=== PATIENT | male | born 1965 | race Caucasian/White ===

== ENCOUNTER 2019-08-15 06:32 | Observation (INO) | payer BC ==
[2019-08-15] MEDS ORDERED: MORPHINE 4 MG/ML SYR ONE (07:23)
[2019-08-15] MEDS ORDERED: ONDANSETRON 4 MG/2 ML VIAL ONE (07:26)
--- OUTSIDE RECORDS SUMMARY | 2019-08-15 07:27 | XMS REPORT ---
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
--- OUTSIDE RECORDS SUMMARY | 2019-08-15 07:27 | XMS REPORT ---
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
--- OUTSIDE RECORDS SUMMARY | 2019-08-15 07:27 | XMS REPORT ---
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
--- OUTSIDE RECORDS SUMMARY | 2019-08-15 07:27 | XMS REPORT ---
:1965 Author Organization e[employer]Works Care Team Providers Name Role Phone Stephen Ospina Provider Role Unavailable Allergies, Adverse Reactions, Alerts Substance Reaction Event Type Singulair outbursts Drug Allergy Claritin Info Not Available Drug Allergy Problems Problem Type Condition Code Onset Dates [...] Problem Nasal airway obstruction J34.89 Active Assessment Nasal airway obstruction J34.89 Active Assessment Allergic rhinitis due to animal J30.81 Active (cat) (dog) hair and dander Assessment Allergic rhinitis J30.89 Active Assessment 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 Active Assessment Allergic rhinitis due to pollen J30.1 Active Assessment Sinusitis - Chronic J32.8 Active Problem 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 Active Assessment Hypersensitivity pneumonitis due to J67.8 Active other organic dusts Problem Hearing loss - Sensorineural H90.3 Active Bilateral Medications Medication Code Code Instructions Start End Status Dosage System Date Date Biaxin XL [facility] 86437195247 500 MG Orally Oct 09, Nov 08, Active 1 tablet Once a day 2017 2017 Diflucan [facility] 65046995150 150 MG Orally Sep 24, Nov 19, Active 2 tablets Once a week 2016 2017 ProAir HFA [facility] [address]-15 Active not defined Nasonex [facility] [address]-18 Active not defined Zyrtec [facility] [address]-94 Active not defined Tylenol #3 [facility] 59425761647 300-30 MG Oct 23, Active 1-2 Orally every 3 2018 tablets hrs as needed Amoxicillin-Pot [facility] [address]-72 Active not Clavulanate defined Telmisartan [facility] [address]-85 Active not defined Esomeprazole [facility] [address]-77 Active not Magnesium defined Biaxin XL [facility] 49569183681 500 MG Orally Oct 23, Nov 22, Active 1 tablet Once a day 2017 2017 PredniSONE [facility] 11851221763 10 MG Orally Oct 23, Nov 22, Active 1 tablet Once a day 2017 2017 Results No Known Results Summary Purpose eClinicalWorks Submission
--- OUTSIDE RECORDS SUMMARY | 2019-08-15 07:27 | XMS REPORT ---
[...] 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 Active Assessment Unspecified visual disturbance H53.9 Active Problem Other hemorrhoids K64.8 Active Problem Hypertrophy of nasal turbinates J34.3 Active Problem Parageusia R43.2 Active Problem Allergic rhinitis, seasonal J30.2 Active Problem Allergic rhinitis J30.9 Active Problem Anosmia R43.0 Active Assessment 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 Active Assessment Hypertrophy of nasal turbinates J34.3 Active Assessment Allergic rhinitis J30.9 Active Assessment Other hemorrhoids K64.8 Active Problem Hearing loss - Sensorineural H90.3 Active Bilateral Problem Nasal airway obstruction R09.81 Active Assessment Sinusitis - Chronic J32.8 Active Problem Acute tonsillitis J03 Active Problem 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 Active Problem Sinusitis - Chronic J32.8 Active Medications Medication Code Code Instructions Start End Status Dosage System Date Date Biaxin XL [facility] 73712467173 500 MG Orally Oct 23, Nov 22, Active 1 tablet Once a day 2017 2017 ProAir HFA [facility] [address]-27 Active not defined Diflucan ND 07982281934 150 MG Orally Sep 24, Nov 15, Active 2 tablets Once a week 2016 2017 Amoxicillin-Pot [facility] [address]-75 Active not Clavulanate defined PredniSONE ND 21611670971 10 MG Orally Oct 23, Nov 18, Active 1 tablet Once a day 2017 [address] [facility] [address]-67 Active not defined Astelin [facility] 87624022793 137 MCG/SPRAY Nov 17, Active 1 spray in Nasally Twice a 2017 each day nostril Telmisartan [facility] [address]-31 Active not defined Zyrtec [facility] [address]-94 Active not defined Dymista [facility] 63156040551 137-50 MCG/ACT Nov 17, Active 1 puff in Nasally Twice a 2017 each day nostril Esomeprazole [facility] [address]-88 Active not Magnesium defined Tylenol #[address] [facility] 66210770427 300-30 MG Oct 23, Active 1-2 Orally every 2017 tablets hrs as needed Flonase [facility] 33036508510 50 MCG/ACT Nov 17, Active 1 spray in Nasally Twice a 2017 each day nostril Results No Known Results Summary Purpose eClinicalWorks Submission
--- OUTSIDE RECORDS SUMMARY | 2019-08-15 07:27 | XMS REPORT ---
:1965 Author Organization eClinicalWorks Care Team Providers Name Role Phone Stephen Ospina Provider Role Unavailable Allergies, Adverse Reactions, Alerts Substance Reaction Event Type Singulair outbursts Drug Allergy Claritin Info Not Available Drug Allergy Problems Problem Type Condition Code Onset Dates Condition Status Problem Nasal airway obstruction J34.89 Active Problem Allergic rhinitis, seasonal J30.2 Active Problem Chronic tonsillitis J35.01 Active Problem Allergic contact dermatitis, L23.9 Active unspecified cause Assessment Allergic contact dermatitis, L23.9 Active unspecified cause Problem 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 Active Problem Hypertrophy of nasal turbinates J34.3 Active Problem Anosmia R43.0 Active Problem Parageusia R43.2 Active Problem Other hemorrhoids K64.8 Active Problem Allergic rhinitis J30.9 Active Assessment 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 Active Assessment Sinusitis - Chronic J32.8 Active Assessment Allergic rhinitis J30.9 Active Assessment Hypertrophy of nasal turbinates J34.3 Active Problem Nasal airway obstruction R09.81 Active Problem Acute tonsillitis J03 Active Problem 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 Active Problem Sinusitis - Chronic J32.8 Active Problem Hearing loss - Sensorineural H90.3 Active Bilateral Problem Intervertebral disc disorders with M51.06 Active myelopathy, lumbar region Medications Medication Code Code Instructions Start End Status Dosage System Date Date Tylenol #3 [facility] 87855086481 300-30 MG Oct 23, Active 1-2 Orally every 3 2018 tablets hrs as needed Astelin [facility] 12950695018 137 MCG/SPRAY May 07, Active 1 spray in Nasally Twice a 2017 each day nostril Nasonex [facility] [address]-95 Active not defined Flonase ND 13738414411 50 MCG/ACT May 07, Active 1 spray in Nasally Twice a 2018 each day nostril Zyrtec [facility] [address]-42 Active not defined Flonase ND 72824578379 50 MCG/ACT Nov 17, Active 1 spray in Nasally Twice a 2017 each day nostril Astelin [facility] 16454791801 137 MCG/SPRAY Nov 17, Active 1 spray in Nasally Twice a 2017 each day nostril Dymista [facility] 07585107417 137-50 MCG/ACT May 07, Active 1 puff in Nasally Twice a 2017 each day nostril Amoxicillin-Pot [facility] [address]-23 Active not Clavulanate defined ProAir HFA [facility] [address]-80 Active not defined Dymista [facility] 41047755501 137-50 MCG/ACT Nov 17, Active 1 puff in Nasally Twice a 2017 each day nostril Telmisartan [facility] [address]-48 Active not defined Esomeprazole [facility] [address]-96 Active not Magnesium defined Diflucan [facility] 71571033550 150 MG Orally May 07Jun Active 2 tablets Once a week 2017 Results No Known Results Summary Purpose eClinicalWorks Submission
--- OUTSIDE RECORDS SUMMARY | 2019-08-15 07:28 | XMS REPORT ---
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 Problem Chronic maxillary sinusitis J32.0 Active Problem Hypertrophy of nasal turbinates J34.3 Active Problem Other hemorrhoids K64.8 Active Problem Headache R51 Active Problem Allergic contact dermatitis, L23.9 Active unspecified cause Problem Nasal airway obstruction R09.81 Active Problem Acute tonsillitis J03 Active Problem 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
--- OUTSIDE RECORDS SUMMARY | 2019-08-15 07:28 | XMS REPORT ---
:1965 [facility] Address [address] [place] [address] [address] Care Team Providers Name Role Phone DR JAVIER WILLIAMSON Unavailable Unavailable Problems This patient has no known problems. Allergies, Adverse Reactions, Alerts This patient has no known allergies or adverse reactions. Medications This patient has no known medications. Encounters Start End Encounter Admission Attending Care Care Encounter Date/Time Date/Time Type Type Clinicians Facility Department ID 2017-11-09 2017-11-10 Outpatient [facility] [id number] 07:46:00 08:29:00
--- OUTSIDE RECORDS SUMMARY | 2019-08-15 07:28 | XMS REPORT ---
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 Problem Parageusia R43.2 Active Problem Allergic rhinitis J30.9 Active Problem Anosmia R43.0 Active Problem Asthma, other J45.998 Active Problem Headache R51 Active Assessment 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 Active Assessment Hypertrophy of nasal turbinates J34.3 Active Problem 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 Assessment Allergic rhinitis J30.9 Active Problem 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 Active Problem Other hemorrhoids K64.8 Active Problem Hypertrophy of nasal turbinates J34.3 Active Problem Allergic contact dermatitis, L23.9 Active unspecified cause Problem Hearing loss - Sensorineural H90.3 Active Bilateral Problem Nasal airway obstruction R09.81 Active Assessment Sinusitis - Chronic J32.8 Active Problem 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 Active Problem Intervertebral disc disorders with M51.06 Active myelopathy, lumbar region Problem Nasal airway obstruction J34.89 Active Problem Acute tonsillitis J03 Active Problem Sinusitis - Chronic J32.8 Active Medications Medication Code Code Instructions Start End Status Dosage System Date Date Astelin ND 91280944875 137 MCG/SPRAY Nov 17, Active 1 spray in Nasally Twice a 2017 each day nostril Astelin NDC 06350546094 137 MCG/SPRAY May 07, Active 1 spray in Nasally Twice a 2018 each day nostril Nasonex [facility] [address]-94 Active not defined Medrol (Bryson) ND 24303315146 4 MG Orally December Active as 2017 directed Flonase [facility] 29714367763 50 MCG/ACT Nov 17, Active 1 spray in Nasally Twice a 2017 each day nostril Diflucan [facility] 15877225026 150 MG Orally May 07, Sept Active 2 tablets Once a week 2017 Dymista [facility] 17409553038 137-50 MCG/ACT May 07, Active 1 puff in Nasally Twice a 2017 each day nostril Zyrtec [facility] [address]-80 Active not defined Telmisartan [facility] [address]-17 Active not defined Esomeprazole [facility] [address]-22 Active not Magnesium defined Amoxicillin-Pot [facility] [address]-11 Active not Clavulanate defined Dymista [facility] 49126310901 137-50 MCG/ACT Nov 17, Active 1 puff in Nasally Twice a 2017 each day nostril Flonase [facility] 40577751633 50 MCG/ACT May 07, Active 1 spray in Nasally Twice a 2017 each day nostril ProAir HFA [facility] [address]-47 Active not defined Results No Known Results Summary Purpose eClinicalWorks Submission
--- OUTSIDE RECORDS SUMMARY | 2019-08-15 07:28 | XMS REPORT ---
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 Active Problem Other hemorrhoids K64.8 Active Problem Hypertrophy of nasal turbinates J34.3 Active Problem Allergic contact dermatitis, L23.9 Active unspecified cause Problem Hearing loss - Sensorineural H90.3 Active Bilateral Problem Nasal airway obstruction R09.81 Active Problem 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 Active Problem Intervertebral disc disorders with M51.06 Active myelopathy, lumbar region Problem Nasal airway obstruction J34.89 Active Problem Acute tonsillitis J03 Active Problem Chronic tonsillitis J35.01 Active Problem Sinusitis - Chronic J32.8 Active Problem Allergic rhinitis, seasonal J30.2 Active Medications No Known Medications Results No Known Results Summary Purpose eClinicalWorks Submission
--- OUTSIDE RECORDS SUMMARY | 2019-08-15 07:28 | XMS REPORT ---
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 Assessment Chronic maxillary sinusitis J32.0 Active Problem Asthma, other J45.998 Active Assessment Allergic rhinitis J30.9 Active Assessment 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 Active Problem Chronic maxillary sinusitis J32.0 Active Problem Allergic contact dermatitis, L23.9 Active unspecified cause Problem 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 Active Problem Headache R51 Active Problem Hypertrophy of nasal turbinates J34.3 [...] lumbar region Problem Parageusia R43.2 Active Medications Medication Code Code Instructions Start End Status Dosage System Date Date Flonase [facility] 33914377975 50 MCG/ACT Feb 13, Active 1 spray in Nasally Twice a 2017 each day nostril Dymista ND 12615450889 137-50 MCG/ACT Feb , Active 1 puff in Nasally Twice a 2018 each day nostril Esomeprazole NDC 0 Active not Magnesium defined Astelin ND 83661653772 137 MCG/SPRAY b , Active 1 spray in Nasally Twice a 2017 each day nostril Amoxicillin-Pot [facility] [address]-95 Active not Clavulanate defined Diflucan [facility] 58794431884 150 MG Orally May 07Jun Active 2 tablets Once a week 2017 Xhance [facility] [address]-08 Active not defined Telmisartan [facility] [address]-55 Active not defined Nasonex [facility] [address]-93 Active not defined Zyrtec [facility] [address]-08 Active not defined ProAir HFA [facility] [address]-02 Active not defined Medrol (Bryson) [facility] 73269399028 4 MG Orally December Active as 2017 directed Results No Known Results Summary Purpose eClinicalWorks Submission
[2019-08-15 07:31] LABS: Absolute Lymphocytes (CBC) 1.3 K/uL (0.7-4.9); Hematocrit 39.9 % (39.6-49.0); Lymphocytes % 19.3 % (15.3-44.8); MPV 8.9 fL (7.6-11.3); RBC Red Blood Cell Count 4.62 M/uL (4.33-5.43)
[2019-08-15 07:50] LABS: ALT/SGPT 62 U/L (12-78); AST/SGOT 26 U/L (15-37); Alkaline Phosphatase 65 U/L (45-117); BUN Blood Urea Nitrogen 19 mg/dL (7-18); Bicarbonate 27 mmol/L (21-32); Bilirubin Direct 0.1 mg/dL (0-0.2); Bilirubin Total 0.3 mg/dL (0.2-1.0); Glucose Level 144 mg/dL (74-106); Lipase 79 U/L (73-393); Potassium 4.4 mmol/L (3.5-5.1); Protein, Total 7.5 g/dL (6.4-8.2); Sodium Level 140 mmol/L (136-145); Troponin (Emerg Dept Use Only) < 0.02 ng/mL (0.0-0.045)
--- NOTE | 2019-08-15 08:39 | RAD REPORT ---
EXAM DESCRIPTION: US - Abdomen Exam Limited - 08/15/2019 8:20 am CLINICAL HISTORY: ABD PAIN COMPARISON: No comparisons FINDINGS: The gallbladder demonstrates a shadowing gallstone. No pericholecystic fluid or gallbladde r wall thickening. The common bile duct is normal measuring 4 mm. The liver demonstrates no findings of intrahepatic biliary dilatation. IMPRESSION: Large nonmobile stone in the gallbladder neck.
--- NOTE | 2019-08-15 09:33 | EDPHYS ---
Physician Documentation [facility] Name: Gerald Phillips Age: 54 yrs Sex: Male : 1965 Arrival Date: 08/15/2019 Time: 06:34 Bed 17 Private MD: ED Physician Salvador Leroy HPI: 08/15 07:53 This 54 yrs old Male presents to ER via Ambulatory with complaints of kb Abdominal Pain. 07:53 The patient presents with abdominal pain in the epigastric area, in the right upper kb quadrant. Onset: The symptoms/episode began/occurred today, at 02:00. The symptoms do not radiate. Associated signs and symptoms: none. The symptoms are described as constant. Modifying factors: The symptoms are alleviated by nothing, the symptoms are aggravated by nothing. Severity of pain: At its worst the pain was moderate in the emergency department the pain is unchanged. The patient has experienced a previous episode, last week. The patient has not recently seen a physician. Pt reports abd pain that started at 0200. Denies n/v/d/f. States he had the same pain on for a few hours and then it subsided. Historical: - Allergies: 07:00 No Known Allergies; bp - Home Meds: 07:00 losartan 50 mg oral tab 1 tab once daily [Active]; Nexium 40 mg Oral cpDR 1 cap once bp daily [Active]; - PMHx: 07:00 Hypertension; GERD; bp - PSHx: 07:00 None; bp - Immunization history:: Adult Immunizations up to date. - Social history:: Smoking status: Patient/guardian denies using tobacco. - Ebola Screening: : No symptoms or risks identified at this time. ROS: 07:53 Constitutional: Negative for fever, chills, and weight loss, Cardiovascular: Negative kb for chest pain, palpitations, and edema, Respiratory: Negative for shortness of breath, cough, wheezing, and pleuritic chest pain, Back: Negative for injury and pain, : Negative for injury, bleeding, discharge, and swelling, MS/Extremity: Negative for injury and deformity, Skin: Negative for injury, rash, and discoloration, Neuro: Negative for headache, weakness, numbness, tingling, and seizure. 07:53 Abdomen/GI: Positive for abdominal pain, Negative for nausea, vomiting, and diarrhea. Exam: 07:53 Constitutional: This is a well developed, well nourished patient who is awake, alert, kb and in no acute distress. Head/Face: Normocephalic, atraumatic. ENT: Nares patent. No nasal discharge, no septal abnormalities noted. Tympanic membranes are normal and external auditory canals are clear. Oropharynx with no redness, swelling, or masses, exudates, or evidence of obstruction, uvula midline. Mucous membranes moist. Neck: Trachea midline, no thyromegaly or masses palpated, and no cervical lymphadenopathy. Supple, full range of motion without nuchal rigidity, or vertebral point tenderness. No Meningismus. Chest/axilla: Normal chest wall appearance and motion. Nontender with no deformity. No lesions are appreciated. Cardiovascular: Regular rate and rhythm with a normal S1 and S2. No gallops, murmurs, or rubs. Normal PMI, no JVD. No pulse deficits. Respiratory: Lungs have equal breath sounds bilaterally, clear to auscultation and percussion. No rales, rhonchi or wheezes noted. No increased work of breathing, no retractions or nasal flaring. Back: No spinal tenderness. No costovertebral tenderness. Full range of motion. Skin: Warm, dry with normal turgor. Normal color with no rashes, no lesions, and no evidence of cellulitis. MS/ Extremity: Pulses equal, no cyanosis. Neurovascular intact. Full, normal range of motion. Neuro: Awake and alert, GCS 15, oriented to person, place, time, and situation. Cranial nerves II-XII grossly intact. Motor strength 5/5 in all extremities. Sensory grossly intact. Cerebellar exam normal. Normal gait. 07:53 Abdomen/GI: Inspection: abdomen appears normal, Bowel sounds: normal, in all quadrants, Palpation: soft, in all quadrants, mild abdominal tenderness, in the epigastric area and right upper quadrant. Vital Signs: 07:00 BP 157 / 79; Pulse 61; Resp 17; Temp 98; Pulse Ox 98% ; Weight 104.33 kg; Height 5 ft. bp 6 in. (167.64 cm); 08:20 BP 139 / 79; Pulse 58; Resp 16; Pulse Ox 97% ; bp 10:03 BP 127 / 71; Pulse 59; Resp 16; Pulse Ox 97% ; bp 11:37 BP 131 / 69; Pulse 61; Resp 16; Temp 98; Pulse Ox 98% ; bp 07:00 Body Mass Index 37.12 (104.33 kg, 167.64 cm) bp MDM: 06:52 Patient medically screened. kb 07:53 Data reviewed: vital signs, nurses notes. Data interpreted: Pulse oximetry: on room air kb is 98 %. Interpretation: normal. 08:33 Physician consultation: Mamadou Crawley MD paged . kb 09:28 Counseling: I had a detailed discussion with the patient and/or guardian regarding: the kb historical points, exam findings, and any diagnostic results supporting the discharge/admit diagnosis, lab results, radiology results, the need for further work-up and treatment in the hospital. Physician consultation: Mamadou Crawley MD was contacted at 09:29, regarding consult, patient's condition. 09:30 Physician consultation: Jim Castro DO was contacted at 09:30, regarding admission, kb to the medical/surgical unit. patient's condition, and will see patient in ED, shortly. 08/15 07:01 Order name: Basic Metabolic Panel; Complete Time: 07:51 kb 08/15 07:01 Order name: CBC with Diff; Complete Time: 07:37 kb 08/15 07:01 Order name: Hepatic Function; Complete Time: 07:51 kb 08/15 07:01 Order name: Lipase; Complete Time: 07:51 kb 08/15 07:01 Order name: Troponin (emerg Dept Use Only); Complete Time: 07:51 kb 08/15 07:37 Order name: US Abdomen Limited; Complete Time: 09:22 kb 08/15 07:01 Order name: IV Saline Lock; Complete Time: 07:20 kb 08/15 07:01 Order name: Labs collected and sent; Complete Time: 07:32 kb 08/15 07:01 Order name: EKG; Complete Time: 07:02 kb 08/15 07:01 Order name: EKG - Nurse/Tech; Complete Time: 08:11 kb Administered Medications: 07:15 Drug: morphine 4 mg Route: IVP; Site: right antecubital; bp 08:11 Follow up: Response: Pain is decreased bp 07:15 Drug: Zofran 4 mg Route: IVP; Site: right antecubital; bp 08:11 Follow up: Response: No adverse reaction bp Disposition: 08/16 00:30 Co-signature as Attending Physician, Salvador Leroy MD I agree with the assessment and tw4 plan of care. Disposition: 08/15/19 09:31 Hospitalization ordered by Jim Castro for Observation. Preliminary diagnosis is Cholelithiasis. - Bed requested for Telemetry/MedSurg (observation). - Status is Observation. bp - Condition is Stable. - Problem is new. - Symptoms are unchanged. UTI on Admission? No Signatures: Dispatcher [employer] EDMS Kaitlyn Newton, SEAFOOD SPECIALIST-C SEAFOOD SPECIALIST-CkKelsey Baker, RN RN dw Parish Goodman, RN RN Salvador Cruz MD MD tw4 Corrections: (The following items were deleted from the chart) 08/15 11:00 09:31 Hospitalization Ordered by Jim Castro DO for Observation. Preliminary dw diagnosis is Cholelithiasis. Bed requested for Telemetry/MedSurg (observation). Status is Observation. Condition is Stable. Problem is new. Symptoms are unchanged. UTI on Admission? No. kb 12:08 11:00 08/15/2019 09:31 Hospitalization Ordered by Jim Castro DO for Observation. bp Preliminary diagnosis is Cholelithiasis. Bed requested for Telemetry/MedSurg (observation). Status is Observation. Condition is Stable. Problem is new. Symptoms are unchanged. UTI on Admission? No. dw
--- NOTE | 2019-08-15 09:33 | ER ---
Nurse's Notes [facility] Name: Gerald Phillips Age: 54 yrs Sex: Male : 1965 Arrival Date: 08/15/2019 Time: 06:34 Bed 17 Private MD: Diagnosis: Cholelithiasis Presentation: 08/15 07:00 Presenting complaint: Patient states: RUQ ABD PAIN SINCE 0200. Transition of care: bp patient was not received from another setting of care. Onset of symptoms was August 15, 2019 at 02:00. Risk Assessment: Do you want to hurt yourself or someone else? Patient reports no desire to harm self or others. Initial Sepsis Screen: Does the patient meet any 2 criteria? No. Patient's initial sepsis screen is negative. Does the patient have a suspected source of infection? No. Patient's initial sepsis screen is negative. Care prior to arrival: None. 07:00 Method Of Arrival: Ambulatory bp 07:00 Acuity: STEFFANY 3 bp Triage Assessment: 07:00 General: Appears in no apparent distress. comfortable, Behavior is calm, cooperative, bp appropriate for age. Pain: Complains of pain in right upper quadrant. EENT: No deficits noted. Neuro: No deficits noted. Cardiovascular: No deficits noted. Respiratory: No deficits noted. GI: Reports upper abdominal pain, Patient currently denies diarrhea, nausea, vomiting. 07:00 : No deficits noted. Derm: No deficits noted. Musculoskeletal: No deficits noted. bp Historical: - Allergies: 07:00 No Known Allergies; bp - Home Meds: 07:00 losartan 50 mg oral tab 1 tab once daily [Active]; Nexium 40 mg Oral cpDR 1 cap once bp daily [Active]; - PMHx: 07:00 Hypertension; GERD; bp - PSHx: 07:00 None; bp - Immunization history:: Adult Immunizations up to date. - Social history:: Smoking status: Patient/guardian denies using tobacco. - Ebola Screening: : No symptoms or risks identified at this time. Screenin:00 Abuse screen: Denies threats or abuse. Denies injuries from another. Nutritional bp screening: No deficits noted. Tuberculosis screening: No symptoms or risk factors identified. Fall Risk None identified. Assessment: 07:00 General: SEE TRIAGE NOTE. bp 07:00 GI: Bowel sounds present X 4 quads. Abd is soft X 4 quads. bp 08:19 Reassessment: U/S COMPLETE, RESULTS PENDING. bp 10:03 Reassessment: ADMIT IN PROCESS FOR CHOLELITHIASIS, PT SEEN BY ADMIT . bp 11:37 Reassessment: ADMIT COMPLETE. bp Vital Signs: 07:00 BP 157 / 79; Pulse 61; Resp 17; Temp 98; Pulse Ox 98% ; Weight 104.33 kg; Height 5 ft. bp 6 in. (167.64 cm); 08:20 BP 139 / 79; Pulse 58; Resp 16; Pulse Ox 97% ; bp 10:03 BP 127 / 71; Pulse 59; Resp 16; Pulse Ox 97% ; bp 11:37 BP 131 / 69; Pulse 61; Resp 16; Temp 98; Pulse Ox 98% ; bp 07:00 Body Mass Index 37.12 (104.33 kg, 167.64 cm) bp ED Course: 06:34 Patient arrived in ED. ag3 06:49 Kaitlyn Newton F[facility]-C [facility] kb 06:49 Salvador Leroy MD is Attending Physician. kb 06:58 Parish Goodman, AMINATA is Primary Nurse. bp 07:00 Arm band placed on. bp 07:00 Patient has correct armband on for positive identification. Bed in low position. Call bp light in reach. Side rails up X2. Adult w/ patient. 07:16 Triage completed. bp 07:33 Initial lab(s) drawn, by me, sent to lab. Inserted saline lock: 20 gauge in right ms antecubital area, using aseptic technique. Blood collected. 08:16 EKG done, by library technology instructor. reviewed by Donato Ramsay MD. tc 08:21 US Abdomen Limited In Process Unspecified. EDMS 09:30 Jim Castro DO is Hospitalizing Provider. kb 11:06 No provider procedures requiring assistance completed. Patient admitted, IV remains in bp place. Administered Medications: 07:15 Drug: morphine 4 mg Route: IVP; Site: right antecubital; bp 08:11 Follow up: Response: Pain is decreased bp 07:15 Drug: Zofran 4 mg Route: IVP; Site: right antecubital; bp 08:11 Follow up: Response: No adverse reaction bp Outcome: 09:31 Decision to Hospitalize by Provider. kb 11:38 Admitted to Med/surg accompanied by tech, family with patient, via wheelchair, room bp 205, with chart, Report called to TRINY COATES 11:38 Condition: stable 11:38 Instructed on the need for admit. 12:08 Patient left the ED. bp Signatures: Dispatcher [employer] EDWI Kaitlyn Newton, DUDE WRANGLER-C DUDE WRANGLER-Moriah Ly ms, Tiffany, line repairer tower EKG Parish Garcia, AMINATA RN bp Jolly Bueno ag3
--- NOTE | 2019-08-15 10:32 | P.HP ---
Certification for Inpatient Patient admitted to: Observation With expected LOS: <2 Midnights Patient will require the following post-hospital care: None Practitioner: I am a practitioner with admitting privileges, knowledge of patient current condition, hospital course, and medical plan of care. Services: Services provided to patient in accordance with Admission requirements found in Title 42 Section 412.3 of the Code of Federal Regulations Patient History Date of Service: 08/15/19 Primary Care Provider: Dr. Carballo; Cardiology-Dr. Rogers; GI-Dr. Waggoner Reason for admission: Epigastric/RUQ abdominal pain History of Present Illness: 54-year-old male presented to the emergency room with epigastric and right upper quadrant abdominal pain. Patient with history of hypertension, type 2 diabetes non insulin dependent, GERD, obstructive sleep apnea. Patient first reported epigastric pain on last week. This continued the following day. He thought it was indigestion and took some Nexium which she takes for GERD. Today around 2:00 a.m. the epigastric pain radiated to the right upper quadrant. Pain was severe. He denied any fever, chills. Denied any significant nausea or vomiting. He came to the ER for further evaluation. In the ER patient was evaluated. White count 6.5, hemoglobin 13.6. Comprehensive metabolic panel unremarkable. LFTs unremarkable. Lipase unremarkable. Abdominal ultrasound showed gallstone within the gallbladder. No intrahepatic biliary dilation or common bile duct dilation. Patient was admitted for further evaluation and treatment. ER spoke with surgery. When I saw the patient the ER, pain was better controlled with medication. Patient currently NPO for surgery this afternoon. Home medications list reviewed: Yes - Past Medical/Surgical History Diabetic: Yes -: DM Type 2 non insulin dependent -: HTN -: GERD -: SANDIP on CPAP -: Chronic sinus polyps -: Back surgery -: Sinus surgery Psychosocial/ Personal History: - Family History Family History: Reviewed- Non-Contributory - Social History Smoking Status: Never smoker Alcohol use: Yes CD- Drugs: No Caffeine use: Yes Place of Residence: Home Review of Systems General: As per HPI Eyes: Unremarkable ENT: Unremarkable Respiratory: Unremarkable Cardiovascular: Unremarkable Gastrointestinal: Abdominal Pain, As per HPI Genitourinary: Unremarkable Musculoskeletal: Unremarkable Integumentary: Unremarkable Neurological: Unremarkable Lymphatics: Unremarkable Physical Examination - Physical Exam General: Alert, In no apparent distress, Oriented x3, Cooperative HEENT: Atraumatic, Normocephalic, PERRLA, Mucous membr. moist/pink Neck: Supple Respiratory: Clear to auscultation bilaterally, Normal air movement Cardiovascular: Normal pulses, Regular rate/rhythm Gastrointestinal: Normal bowel sounds, Soft and benign, Non-distended, No tenderness, No masses, No rebound, No guarding Musculoskeletal: No erythema, No tenderness, No warmth Integumentary: No tenderness/swelling, No erythema, No warmth, No cyanosis Neurological: Normal speech, Normal strength at 5/5 x4 extr, Normal tone, Normal affect - Studies Laboratory Data (last 24 hrs) 08/15/19 07:18: WBC 6.5, Hgb 13.6, Hct 39.9, Plt Count 180 08/15/19 07:18: Sodium 140, Potassium 4.4, BUN 19 H, Creatinine 0.93, Glucose 144 H, Total Bilirubin 0.3, AST 26, ALT 62, Alkaline Phosphatase 65, Lipase 79 Assessment and Plan - Plan Impression: Epigastric and RUQ Abdominal pain secondary to cholecystitis w cholelithiasis DM Type 2 non insulin dependent HTN GERD SANDIP on CPAP Plan: Epigastric and RUQ Abdominal pain secondary to cholecystitis w cholelithiasis: Patient admitted for further evaluation and treatment. ER discuss case with surgery. Patient currently NPO as surgical intervention is anticipated. Will start IV fluids. Will also initiate IV Zosyn. Electrolyte protocol in place. Will monitor lab closely. Will discuss with surgery. Anticipate likely discharge after surgery possibly tonight or tomorrow morning. DM Type 2 non insulin dependent: Will place on insulin sliding scale and monitor Accu-Cheks. HTN: Will provide IV medication as needed. GERD: Will continue with PPI IV. SANDIP on CPAP: Patient may use his CPAP at night. Discharge Plan: Home Plan to discharge in: 24 Hours - Advance Directives Does patient have a Living Will: No Does patient have a Durable POA for Healthcare: No - Code Status/Comfort Care Code Status Assessed: Yes (patient is full code) Time Spent Managing Pts Care (In Minutes): 55
[2019-08-15] MEDS ORDERED: ACETAMINOPHEN 650MG/RECT SUPP PR PRN (12:23)
[2019-08-15] MEDS ORDERED: ONDANSETRON 4 MG/2 ML VIAL IV PRN (12:23)
[2019-08-15] MEDS ORDERED: HYDRALAZINE HCL 20 MG/ML VIAL IV PRN (12:23)
[2019-08-15] MEDS ORDERED: SODIUM CHLORIDE 0.9% 10ML INJ IV PRN (12:23)
[2019-08-15] MEDS ORDERED: ACETAMINOPHEN 500 MG TAB PO PRN (12:23)
[2019-08-15 15:34] LABS: Urine Appearance CLEAR; Urine Bilirubin NEGATIVE (NEG); Urine Blood NEGATIVE (NEG); Urine Color YELLOW; Urine Glucose NEGATIVE (NEG); Urine Protein NEGATIVE (NEG); Urine Urobilinogen 0.2 mg/dL (0.2-1.0); Urine pH 5.5 (5.0-7.0)
[2019-08-15 15:39] LABS: Urine Microscopic Reflex NO UMIC
--- NOTE | 2019-08-15 15:55 | EKG ---
Test Date: 2019-08-15 Test Time: 08:06:29 Land Title Examiner: OSCAR MEASUREMENT RESULTS: Intervals: Rate: 54 [place]: 152 QRSD: 98 QT: 400 QTc: 379 [place]: P: 51 [place]: 152 QRS: 40 T: 5 INTERPRETIVE STATEMENTS: Sinus bradycardia Nonspecific T wave abnormality Abnormal ECG Compared to ECG 10/22/2017 08:49:08 T-wave abnormality now present Electronically Signed On 08-15-19 15:54:11 CANDY DECORATOR by Chaparro Barakat
[2019-08-15 16:36] VITALS: BMI 37.1
[2019-08-15] MEDS: PANTOPRAZOLE 40 MG INJ IVP SCH (17:35)
[2019-08-15] MEDS: NA CHLORIDE 0.9% 1,000 ML IV SCH ×2 (17:36→21:03)
[2019-08-15] MEDS: PIPER/TAZO/NS 3.375gm 3.375 GM/100 ML BAG IVPB SCH (17:36)
--- NOTE | 2019-08-15 20:31 | CON ---
Date of Consultation: 08/15/2019 Reason: Abdominal pain. History Of Present Illness: The patient is a 54-year-old gentleman who presents with a four-day hist ory of epigastric and right upper quadrant abdominal pain, started on , got better on Thursday, came back on Thursday, and then it started again last night, postprandial in nature. He does have gage sea, but no vomiting. No bloating, belching, or heart burn. No sore throat, runny nose, cough, head aches, or dizziness. No chest pain. No fever or chills. No diarrhea or constipation. No blood in his stool. No dysuria or hematuria. Review of Systems: Otherwise unremarkable. Past Medical History: Significant for type 2 diabetes, hypertension, GERD, sleep apnea. Past Surgical History: Back surgery and sinus surgery. Allergies: NO ALLERGIES. Social History: He does not smoke. Drinks occasionally. Family History: Noncontributory. Physical Examination: Vital Signs: Stable. He is afebrile. General: He is awake, alert, and oriented x3. Head and Neck: No evidence of icterus. Cranial nerves 2 through 12 are grossly within normal limits . No neck masses. No JVD. Throat clear. Neck is supple. Chest: Clear. Heart: S1, S2. Abdomen: Soft, nondistended. Positive bowel sounds. Positive right upper quadrant tenderness. No rebound. No rigidity or guarding. Extremities: Adequately perfused. Nontender. Neurologic: Nonfocal. Diagnostic Data: White count is 6.5. Chemistries within normal limits. Glucose is slightly elevate d at 144. Ultrasound of the abdomen reviewed, shows a large and nonmobile stone in the gallbladder n chetan. The common bile duct is 4 mm. Assessment: Acute cholecystitis and cholelithiasis. Plan: Admit n.p.o., IV fluid, IV antibiotics. To the OR for lap jany, possible open. The patient understands the risks, benefits, and alternatives, and agrees to procedure. /MODL Voice ID: [id number] Report ID: [id number]
[2019-08-16] MEDS: PIPER/TAZO/NS 3.375gm 3.375 GM/100 ML BAG IVPB SCH ×2 (00:26→10:20)
[2019-08-16 05:42] LABS: Absolute Lymphocytes (CBC) 1.3 K/uL (0.7-4.9); Basophils % 1.8 % (0-1.3); Hematocrit 37.6 % (39.6-49.0); Lymphocytes % 29.4 % (15.3-44.8); MPV 8.5 fL (7.6-11.3); RBC Red Blood Cell Count 4.32 M/uL (4.33-5.43)
[2019-08-16 05:58] LABS: Potassium 4.2 mmol/L (3.5-5.1)
[2019-08-16] MEDS ORDERED: NA CHLORIDE 0.9% 1,000 ML ONE (07:02)
[2019-08-16] MEDS ORDERED: MIDAZOLAM HCL 2 MG/2 ML INJ ONE (07:13)
[2019-08-16] MEDS ORDERED: ROCURONIUM 50 MG/5 ML VIAL IV ONE (07:14)
[2019-08-16] MEDS ORDERED: PROPOFOL 200 MG/20 ML VIAL IV ONE (07:14)
[2019-08-16] MEDS ORDERED: LIDOCAINE 2% MPF 5 ML VIAL ONE (07:14)
[2019-08-16] MEDS ORDERED: CEFOXITIN/SWI 1gm 1 GM/10 ML SYR ONE (07:16)
[2019-08-16] MEDS ORDERED: FENTANYL CITR 100 MCG/2 ML ONE (07:17)
[2019-08-16] MEDS ORDERED: ONDANSETRON 4 MG/2 ML VIAL ONE (07:37)
[2019-08-16] MEDS ORDERED: dexAMETHasone 4 MG/ML VIAL ONE (07:38)
[2019-08-16] MEDS: NA CHLORIDE 0.9% 1,000 ML ONE ×2 (08:00→08:03)
[2019-08-16] MEDS ORDERED: GLYCOPYRROLATE 0.2 MG/ML SYR ONE (08:11)
[2019-08-16] MEDS ORDERED: NEOSTIGMINE 1 MG/ML -5 ML ONE (08:16)
--- NOTE | 2019-08-16 08:21 | P.OP ---
Strip Tank Tender: Krish WALTERS Preoperative diagnosis: Acute Cholecystitis and Cholelithiasis Postoperative diagnosis: same with Adhesions Primary procedure: Lap Annalise, NE Anesthesia: General Estimated blood loss: min Specimen: GB Findings: as above Complications: None Transferred to: Recovery Room Condition: Good
[2019-08-16] MEDS ORDERED: HYDROCODONE/APAP 7.5/325 MG TAB PO PRN (08:23)
[2019-08-16] MEDS ORDERED: ONDANSETRON 4 MG/2 ML VIAL IV PRN (08:23)
[2019-08-16] MEDS: HYDROMORPHONE HCL 1 MG/ML INJ IV PRN ×2 (09:21→13:55)
[2019-08-16] MEDS: NA CHLORIDE 0.9% 1,000 ML IV SCH (09:25)
[2019-08-16] MEDS: PANTOPRAZOLE 40 MG INJ IVP SCH (10:20)
[2019-08-16 11:24] VITALS: O2SAT 90
[2019-08-16 13:34] VITALS: BP 121/67; TEMP 97.4
--- NOTE | 2019-08-16 14:19 | P.PN ---
Subjective Date of Service: 08/16/19 Primary Care Provider: Dr. Carballo; Cardiology-Dr. Rogers; GI-Dr. Waggoner Chief Complaint: Epigastric/RUQ abdominal pain Patient seen and examined at bedside with RN. Chart reviewed. Case discussed with general surgery. Currently patient is status post laparoscopic cholecystectomy. Complains of having some pain along with gas pains as well. No other complaints to offer. Tolerating his clear liquid diet well. Review of Systems 10-point ROS is otherwise unremarkable Physical Examination - Vital Signs Temperature: 97.4 F Blood Pressure: 121/67 Pulse: 53 Respirations: 20 Pulse Ox (%): 93 - Physical Exam General: Alert, In no apparent distress HEENT: Atraumatic, PERRLA, EOMI Neck: Supple, JVD not distended Respiratory: Clear to auscultation bilaterally, Normal air movement Cardiovascular: Regular rate/rhythm, Normal S1 S2 Gastrointestinal: Normal bowel sounds, No tenderness Musculoskeletal: No tenderness Integumentary: No rashes Neurological: Normal speech, Normal tone, Normal affect Lymphatics: No axilla or inguinal lymphadenopathy - Studies Medications List Reviewed: Yes Assessment And Plan - Current Problems (Diagnosis) (1) Acute cholecystitis Current Visit: Yes Status: Acute Plan: Acute cholecystitis with cholelithiasis -general surgery consulted. Appreciated recommendations at this time -patient status post lap jany -will continue with close monitoring here in the hospital for next 24 hr -the patient doing well and discharged home -currently awaiting and tolerating his diet well. Still requiring IV pain medication. Discharge Plan: Home Plan to discharge in: 48 Hours - Code Status/Comfort Care Code Status Assessed: Yes Critical Care: No
--- NOTE | 2019-08-16 19:58 | OP ---
Date of Procedure: 08/16/2019 Surgeon: Mamadou Crawley MD Real Estate Acquisition Analyst: ROMEO Powell. Preoperative Diagnoses: Acute cholecystitis and cholelithiasis. Postoperative Diagnoses: Acute cholecystitis and cholelithiasis with extensive adhesions. Procedures Performed: Laparoscopic cholecystectomy and lysis of adhesions. Estimated Blood Loss: Minimal. Specimen: Gallbladder. Findings: As above. Anesthesia: General. Complications: None. Disposition: The patient tolerated the procedure in stable condition, taken to Recovery in good gene ral condition Description Of Procedure: Patient brought to the OR and placed in supine position. General anesthes ia was begun. Patient was prepped and draped in usual sterile fashion. Marcaine 0.5% was infiltrate d locally. A 15 blade was used to make a 1 cm supraumbilical midline incision. Subcutaneous tissues were divided. The fascia was identified and divided. #1 Vicryl stay suture was placed. Peritoneal cavity was entered with blunt dissection. A 12 mm trocar was placed into the peritoneal cavity unde r direct vision. Pneumoperitoneum was established. Then, three 5 mm trocars were placed, 1 in the e pigastrium just to the right of midline and 2 in the right subcostal region. Laparoscopy revealed ex tensive omental adhesions surrounding the gallbladder and these were taken down with sharp and blunt dissection and bleeding controlled with cautery until the fundus was identified and retracted superio rly. Infundibulum was identified after several more minutes of adhesion of lysis in that area. Once the infundibulum was identified, it was retracted inferolaterally. Cystic duct and cystic artery we re clearly identified with blunt dissection. Clips were placed. Both structures were divided. Caut ksenia was used to remove the of gallbladder from the liver bed and then bleeding on the liver bed was c ontrolled with cautery. Approximately 15-20 minutes were utilized for the lysis of adhesions, then t he gallbladder was retrieved through the umbilicus via an Endo Catch bag. Right upper quadrant was i rrigated. Effluent was clear. No evidence of bleeding or bile leakage appreciated. Subsequently, a ll trocars were removed under direct vision. Stay sutures were tied to each other to reapproximate t he fascial defect. Subcutaneous wounds were irrigated. Bleeding controlled with cautery. 2-0 chrom ic was used for subcutaneous tissue and close the skin. Sterile dressing was applied. Patient was a wakened and taken to Recovery in good general condition. VICKIE/MARY Voice ID: [id number] Report ID: [id number]
== END 2019-08-16 15:38 | disposition home or self-care (01) ==
LOC: ER 06:32 → ERHOLD 10:32 → 2ND 11:37
PROVIDERS: ADMIT Family Medicine; ATTEND Family Medicine
PROC: 0DNW4ZZ Release Peritoneum, Percutaneous Endoscopic Approach (ICD-10-PCS; 2019-08-16)
PROC: 0FT44ZZ Resection of Gallbladder, Percutaneous Endoscopic Approach (ICD-10-PCS; principal; 2019-08-16 07:30)
DX: K80.00 Calculus of gallbladder with acute cholecystitis without obstruction (principal); I10 Essential (primary) hypertension; E11.9 Type 2 diabetes mellitus without complications; K21.9 Gastro-esophageal reflux disease without esophagitis; G47.33 Obstructive sleep apnea (adult) (pediatric); K66.0 Peritoneal adhesions (postprocedural) (postinfection)
CPT/HCPCS: 93005; 85025 ×2; 80048 ×2; 36415; 83735; 82947; 80076; 88304; 81003; 84484; 83690; 76705; 96375; 96374; 99285; 47562; 49329; J2704; C9113 ×2; J2250; J3010; J2543; J1170 ×2; J2710; G0378 ×4; J7030 ×4; J2405 ×2